=== PATIENT | male | born 1935 | race Caucasian/White ===

== ENCOUNTER 2016-05-21 12:26 | Emergency (ER) | payer MEDICARE, OTHER ==
[2016-05-21] MEDS ORDERED: Sodium Chloride 0.9% 10 ML Syringe FLUSH PRN (13:11)
--- NOTE | 2016-05-21 14:32 | EDM.PDOC ---
ED HPI NEURO - General Chief Complaint: Neurological Problem Stated Complaint: DIZZY Time Seen by Provider: 05/21/16 12:52 Source of Information: Reports: Patient History Limitations: Reports: No limitations - History of Present Illness INITIAL COMMENTS - FREE TEXT/NARRATIVE: Patient presents for evaluation and treatment of dizziness. Patient reports that when he awoke this morning he felt "great ". he states that when he got up he immediately started to feel dizzy. He states that his head felt "fuzzy". He did notice some spinning to his vision. He states that since coming to the ER is dizziness and fuzziness has significantly improved. He is still having some vision changes. He states that he felt that the room is spinning. He denies any nausea, vomiting or chest pain. He reports that he has shortness of breath but this is chronic and he has not noticed any change. Patient she reports decreased vision but states this is chronic of his macular degeneration. Patient reports that he checked his pulse ox at home and he was 94 on room air. Patient has a history of paroxysmal A. fib. Currently on Coumadin. He also has an aortic valve replacement. INR was checked this am, they are awaiting to results. Patient had echocardiogram and carotid ultrasound in January. - Related Data Allergies/ADRs: Allergies Allergy/AdvReac Type Severity Reaction Status Date / Time Dairy Products Allergy Stomach Verified 05/21/16 12:42 Upset Penicillins Allergy Rash Verified 05/21/16 12:42 Sulfa (Sulfonamide Allergy Hives Verified 05/21/16 12:42 Antibiotics) Home Meds: Home Meds Albuterol Sulfate [Proair Respiclick] 2 puff INH Q4HR PRN 05/21/16 [History] Arformoterol [Brovana] 1 dose INH BID 05/21/16 [History] Aspirin [Ecotrin] 81 mg PO QPM 05/21/16 [History] Budesonide [Pulmicort] 1 dose INH BID 05/21/16 [History] Hydrocodone/Acetaminophen [Hydrocodon-Acetaminophn 10-325] 1 tab PO Q12HR PRN [History] Ipratropium/Albuterol Sulfate [Iprat-Albut 0.5-3(2.5) mg/3 ml] 1 dose INH Q6HR 05/21/16 [History] Metoprolol Succinate [Toprol XL] 12.5 mg PO QPM 05/21/16 [History] Midodrine 2.5 mg PO BID 05/21/16 [History] Multivitamin [Multi-Vitamin Daily] 1 tab PO DAILY 05/21/16 [History] Omeprazole 20 mg PO DAILY 05/21/16 [History] Sertraline HCl 100 mg PO DAILY 05/21/16 [History] Tiotropium [place] [Spiriva Respimat] 18 mcg INH DAILY 05/21/16 [History] Ubidecarenone [Coenzyme Q-10] 100 mg PO DAILY 05/21/16 [History] Warfarin Sodium [Jantoven] 5 mg PO ASDIRECTED 05/21/16 [History] atorvaSTATin Calcium [Atorvastatin Calcium] 40 mg PO DAILY 05/21/16 [History] Past Medical History Cardiovascular History: Reports: Heart valve replacement Other Cardiovascular History: beef aortic valve replacement Respiratory History: Reports: Asthma, COPD, Other (see below) Other Respiratory History: emphysema, pulmonary fibrosis Oncologic (Cancer) History: Reports: Prostate Other Oncologic History: had 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 - Past Surgical History Respiratory Surgical History: Reports: None GI Surgical History: Reports: Appendectomy Social & Family History - Tobacco Use Smoking Status *Q: Former Smoker Used Tobacco, but Quit: Yes Month Tobacco Last Used: 9 years - Caffeine Use Caffeine Use: Reports: Coffee - Recreational Drug Use Recreational Drug Use: No ED ROS GENERAL - Review of Systems Review Of Systems: See Below Constitutional: Denies: fever, weakness HEENT: Reports: Vision change (reports "spinning" vision) Respiratory: Reports: Shortness of Breath (chronic) Cardiovascular: Denies: Chest pain GI/Abdominal: Denies: Abdominal pain, Nausea, Vomiting Neurological: Reports: Dizziness. Denies: Headache (head felt "fuzzy" ), Difficulty Walking, Weakness ED EXAM, NEURO - Physical Exam Exam: See Below Exam Limited By: No limitations General Appearance: alert, WD/WN, no apparent distress Eye Exam: bilateral eye: EOMI (no nystagmus), PERRL Ears: normal external exam, normal canal, hearing grossly normal, normal TMs Nose: normal inspection Throat/Mouth: Normal inspection, Normal voice, No airway compromise Neck: normal inspection, non-tender, full range of motion. No: carotid bruit Respiratory/Chest: no respiratory distress, lungs clear, normal breath sounds Cardiovascular: normal peripheral pulses, regular rate, rhythm, no murmur GI/Abdominal: soft, non tender Neurological: alert, normal mood/affect, normal dorsiflexion, CN II-XII intact, normal plantar flexion, normal gait, no motor/sensory deficits, oriented x 3, other (normal finger to nose testing, normal heel to arauz testing; early childhood education specialist 5/5 bilaterally, dorsiflexion 5/5 bilaterally, plantar felxion 5/5 bilaterally; no leg/arm drift; smile is sympetrical; able to wrinkle forehead) Psychiatric: normal affect, normal mood Skin Exam: Warm, Dry, Normal color EKG INTERPRETATION EKG Date: 05/21/16 Time: 13:20 Rhythm: NSR Rate (beats/min): 64 [place]: normal P-wave: present QRS: normal ST-T: normal QT: normal Comparison: NA - no prior EKG EKG Interpretation Comments: NSR at 64 bpm. Left atrial hypertrophy. early "r" wave transition. Reviewed by myself and Dr. Nixon. Course - Vital Signs Last Recorded V/S: Last Vital Signs Temp 36.4 C 05/21/16 12:37 Pulse 65 05/21/16 15:15 Resp 20 05/21/16 12:37 BP 135/74 05/21/16 15:15 Pulse Ox 96 05/21/16 15:15 Orthostatic Blood Pressure [ 163/81 Standing] Orthostatic Blood Pressure [ 132/103 Sitting] Orthostatic Blood Pressure [ 145/85 Supine] - Orders/Labs/Meds Orders: Active Orders 24 hr Category Date Time Status Cardiac Monitoring [RC] . DIRECTED Care 05/21/16 13:14 Active EKG 12 Lead [EKG Documentation Completion] [RC] STAT Care 05/21/16 13:11 Active Orthostatic Vital Signs [RC] ASDIRECTED Care 05/21/16 13:13 Active Peripheral IV Care [RC] . DIRECTED Care 05/21/16 13:13 Active Chest 1V Frontal [CR] Stat Exams 05/21/16 13:11 Taken Head wo Cont [CT] Stat Exams 05/21/16 13:11 Taken Peripheral IV Insertion Adult [OM.PC] Routine Oth 05/21/16 13:11 Ordered Labs: Laboratory Tests 05/21/16 05/21/16 05/21/16 Range/Units 12:45 12:45 12:45 WBC 10.04 H (4.23-9.07) K/mm3 RBC 4.34 L (4.63-6.08) M/mm3 Hgb 13.4 L (13.7-17.5) gm/L Hct 40.4 (40.1-51.0) % MCV 93.1 H (79.0-92.2) fl MCH 30.9 (25.7-32.2) pg MCHC 33.2 (32.2-35.5) g/dl RDW Std Deviation 44.4 H (35.1-43.9) fL Plt Count 205 (163-337) K/mm3 MPV 10.0 (9.4-12.3) fl Neut % (Auto) 59.8 (34.0-67.9) % Lymph % (Auto) 19.5 L (21.8-53.1) % [place] % (Auto) 11.4 (5.3-12.2) % Eos % (Auto) 7.4 H (0.8-7.0) Baso % (Auto) 0.8 (0.1-1.2) % Neut # (Auto) 6.01 H (1.78-5.38) K/mm3 Lymph # (Auto) 1.96 (1.32-3.57) K/mm3 [place] # (Auto) 1.14 H (0.30-0.82) K/mm3 Eos # (Auto) 0.74 H (0.04-0.54) K/mm3 Baso # (Auto) 0.08 (0.01-0.08) K/mm3 Manual Slide Review Normal smear PT 27.3 H (8.0-13.0) SECONDS INR 2.37 Sodium 139 (136-145) mEq/L Potassium 4.1 (3.5-5.1) mEq/L Chloride 105 (98-107) mEq/L Carbon Dioxide 23 (21-32) mEq/L Anion Gap 15.1 H (5-15) BUN 19 H (7-18) mg/dL Creatinine 1.1 (0.7-1.3) mg/dL Est Cr Clr Drug Dosing 55.30 mL/min Estimated GFR (MDRD) > 60 (>60) mL/min BUN/Creatinine Ratio 17.3 (14-18) Glucose 95 (83-115) mg/dL Calcium 8.6 (8.5-10.1) mg/dL Total Bilirubin 0.5 (0.2-1.0) mg/dL AST 29 (15-37) U/L ALT 33 (16-63) U/L Alkaline Phosphatase 71 (46-116) U/L Troponin I < 0.017 (0.00-0.056) ng/mL Total Protein 7.4 (6.4-8.2) g/dl Albumin 3.9 (3.4-5.0) g/dl Globulin 3.5 gm/dL Albumin/Globulin Ratio 1.1 (1-2) Urine Color (Yellow) Urine Appearance (Clear) Urine pH (5.0-8.0) Ur Specific [place] (1.005-1.030) Urine Protein (Negative) Urine Glucose (UA) (Negative) Urine Ketones (Negative) Urine Occult Blood (Negative) Urine Nitrite (Negative) Urine Bilirubin (Negative) Urine Urobilinogen (0.2-1.0) Ur Leukocyte Esterase (Negative) Urine RBC (0-5) /hpf Urine WBC (0-5) /hpf Ur Epithelial Cells Ur Squamous Epith Cells (0-5) /hpf Urine Bacteria (FEW) /hpf Urine Mucus (FEW) /hpf 05/21/16 Range/Units 13:45 WBC (4.23-9.07) K/mm3 RBC (4.63-6.08) M/mm3 Hgb (13.7-17.5) gm/L Hct (40.1-51.0) % MCV (79.0-92.2) fl MCH (25.7-32.2) pg MCHC (32.2-35.5) g/dl RDW Std Deviation (35.1-43.9) fL Plt Count (163-337) K/mm3 MPV (9.4-12.3) fl Neut % (Auto) (34.0-67.9) % Lymph % (Auto) (21.8-53.1) % [place] % (Auto) (5.3-12.2) % Eos % (Auto) (0.8-7.0) Baso % (Auto) (0.1-1.2) % Neut # (Auto) (1.78-5.38) K/mm3 Lymph # (Auto) (1.32-3.57) K/mm3 [place] # (Auto) (0.30-0.82) K/mm3 Eos # (Auto) (0.04-0.54) K/mm3 Baso # (Auto) (0.01-0.08) K/mm3 Manual Slide Review PT (8.0-13.0) SECONDS INR Sodium (136-145) mEq/L Potassium (3.5-5.1) mEq/L Chloride (98-107) mEq/L Carbon Dioxide (21-32) mEq/L Anion Gap (5-15) BUN (7-18) mg/dL Creatinine (0.7-1.3) mg/dL Est Cr Clr Drug Dosing mL/min Estimated GFR (MDRD) (>60) mL/min BUN/Creatinine Ratio (14-18) Glucose (83-115) mg/dL Calcium (8.5-10.1) mg/dL Total Bilirubin (0.2-1.0) mg/dL AST (15-37) U/L ALT (16-63) U/L Alkaline Phosphatase (46-116) U/L Troponin I (0.00-0.056) ng/mL Total Protein (6.4-8.2) g/dl Albumin (3.4-5.0) g/dl Globulin gm/dL Albumin/Globulin Ratio (1-2) Urine Color Yellow (Yellow) Urine Appearance Clear (Clear) Urine pH 6.0 (5.0-8.0) Ur Specific [place] 1.015 (1.005-1.030) Urine Protein Negative (Negative) Urine Glucose (UA) Negative (Negative) Urine Ketones Negative (Negative) Urine Occult Blood Negative (Negative) Urine Nitrite Negative (Negative) Urine Bilirubin Negative (Negative) Urine Urobilinogen 0.2 (0.2-1.0) Ur Leukocyte Esterase Negative (Negative) Urine RBC Not seen (0-5) /hpf Urine WBC 0-5 (0-5) /hpf Ur Epithelial Cells Not Reportable Ur Squamous Epith Cells Not seen (0-5) /hpf Urine Bacteria Rare (FEW) /hpf Urine Mucus Not seen (FEW) /hpf Meds: Medications Discontinued Medications Generic Name Dose Route Start Last Admin Trade Name Freq PRN Reason Stop Dose Admin Sodium Chloride 10 ml 04/12/17 13:11 05/21/16 13:17 Saline Flush FLUSH 10 ml ASDIRECTED PRN Administration Keep Vein Open - Radiology Interpretation Free Text/Narrative:: CT of the head with out contrast impression per [facility]: 1. No acute intracerebral abnormality or injury. 2. Mild generalized cerebral atrophy with mild patchy periventricular leukomalacia in both cerebral hemispheres, consistent with chronic underlying small vessel ischemic disease. 3. Minimal mucosal thickening of the left ethmoid sinus. CT Results Date: 05/21/16 - Re-Assessments/Exams Free Text/Narrative Re-Assessment/Exam: 05/21/16 15:03 Labs returned. White blood cell count is 10.04, hemoglobin is 13.4 and plts are 205. PT is 27.3, INR 2.7. Troponin is within normal limits at less than 0.017. Sodium is 139, potassium is 4.1 chloride is 105. Anion gap is 15.1. Glucose is 95. UA is for any blood, ketones, nitrites or leukocytes. Reviewed the labs, cT and ekg with the patient. Dizziness and symptoms have resolved. Will discharge home. Discharge instructions as documented. Departure - Departure Time of Disposition: 15:04 Disposition: Home, Self-Care 01 Condition: good Clinical Impression: Vertigo Instructions: Vertigo, [id number] Referrals: PCP,Not In Area [Primary Care Provider] - Forms: ED Department Discharge Additional Instructions: Go home and rest. Continue with your current plan of care. Please return to the ER should your symptoms change or worsen. - My Orders Last 24 Hours: My Active Orders 05/21/16 13:11 EKG 12 Lead [EKG Documentation Completion] [RC] STAT Chest 1V Frontal [CR] Stat Head wo Cont [CT] Stat Peripheral IV Insertion Adult [OM.PC] Routine 05/21/16 13:13 Orthostatic Vital Signs [RC] ASDIRECTED Peripheral IV Care [RC] . DIRECTED 05/21/16 13:14 Cardiac Monitoring [RC] . DIRECTED - Assessment/Plan Last 24 Hours: My Active Orders 05/21/16 13:11 EKG 12 Lead [EKG Documentation Completion] [RC] STAT Chest 1V Frontal [CR] Stat Head wo Cont [CT] Stat Peripheral IV Insertion Adult [OM.PC] Routine 05/21/16 13:13 Orthostatic Vital Signs [RC] ASDIRECTED Peripheral IV Care [RC] . DIRECTED 05/21/16 13:14 Cardiac Monitoring [RC] . DIRECTED
[2016-05-21 15:27] VITALS: BP 135/74
--- NOTE | 2016-05-22 11:46 | CT ---
Head CT Technique: Multiple axial sections through the brain were obtained. Intravenous contrast was not utilized. Comparison: No previous study. Findings: Ventricles along with basal cisterns and sulci over the convexities are moderately prominent. Very minimal diminished density noted within the periventricular white matter compatible with small vessel ischemic demyelination change. No other abnormal parenchymal densities are seen. No evidence of intracranial hemorrhage. Incidental basal ganglia or calcification is seen. Atherosclerotic calcification is noted within the carotid siphon. Bone window settings were reviewed which show no acute calvarial abnormality. Minimal mucosal thickening noted within the ethmoid sinuses which is felt to be incidental. Impression: 1. Incidental sinus findings. 2. Mild senescent change as described above. No acute intracranial abnormality is identified. Agree with preliminary report issued by [facility] (preliminary report dictated on 05/21/16, 2:50 PM Central Time) Diagnostic code #2
--- NOTE | 2016-05-22 11:46 | CR ---
Chest: Frontal view of the chest was obtained. Comparison: Previous chest x-ray of 04/04/11 is available. Tortuous thoracic aorta is seen. Heart size is within normal limits. Mild increased lung markings are seen believed to represent mild fibrosis. No alveolar type infiltrates are seen. Previous sternotomy noted. Bony structures are grossly intact. Impression: 1. Findings as noted above. Nothing acute is appreciated. No significant change from prior chest x-ray is seen. Diagnostic code #2
== END 2016-05-21 15:15 | disposition home or self-care (01) ==
LOC: JD.ED 12:26
DX: R42 Dizziness and giddiness (principal); I48.0 Paroxysmal atrial fibrillation; Z79.01 Long term (current) use of anticoagulants; Z95.2 Presence of prosthetic heart valve; Z88.0 Allergy status to penicillin; Z91.011 Allergy to milk products; Z88.2 Allergy status to sulfonamides; Z79.82 Long term (current) use of aspirin; Z79.899 Other long term (current) drug therapy; J44.9 Chronic obstructive pulmonary disease, unspecified; J45.909 Unspecified asthma, uncomplicated; Z87.891 Personal history of nicotine dependence
CPT/HCPCS: 36415; 70450; 71010; 80053; 81001; 84484; 85025; 85610; 93005; 99285; J7050; 99283